=== PATIENT | female | born 1980 | race Caucasian/White ===

== ENCOUNTER 2023-11-05 18:02 | Emergency (ER) | payer OTHER, SELFPAY ==
[2023-11-05 18:04] VITALS: BP 127/59
[2023-11-05 18:28] LABS: Glucose - Point of Care 79 mg/dl (70-99)
[2023-11-05 18:41] LABS: % Basophils 0.5 % (0-2); % Eosinophils 0.7 % (0-6); % Immature Granulocytes 0.2 % (0-0.5); % Lymphocytes 34.8 % (20.5-51.1); % Monocytes 8.7 % (1.7-9.3); % Neutrophils 55.1 % (42.2-75.2); Absolute Monocytes 0.5 10^3/uL (0.1-0.6); Absolute Neutrophils 3.2 10^3/uL (1.4-6.5); Hematocrit 37.2 % (37.0-47.0); Hemoglobin 13.1 g/dL (12.0-16.0); Mean Corp Hgb Conc. 35.2 g/dL (33.0-37.0); Mean Corpuscular Hgb 31.5 pg (27.0-31.0); Mean Corpuscular Volume 89.4 fL (81.0-99.0); Mean Platelet Volume 11.6 fL (7.4-10.4); Nucleated Red Blood Cells % 0 %; Platelet Count 186 10^3/uL (130-400); Red Blood Cell Count 4.16 10^6/uL (4.20-5.40); Red Cell Dist. Width 11.9 % (11.5-14.5); Urine Albumin Negative (Neg - Trace); Urine Bilirubin Negative (Negative); Urine Character Clear (Clear); Urine Color Yellow; Urine Glucose Negative (Negative); Urine Ketone Negative (Negative); Urine Leukocyte Negative (Negative); Urine Nitrite Negative (Negative); Urine Occult Blood Negative (Negative); Urine Specific Gravity 1.015 (<1.030); Urine Urobilinogen Negative (Neg - 1+); Urine pH 6.5 (5.0-9.0); White Blood Cell Count 5.7 10^3/uL (4.8-10.8)
[2023-11-05 18:54] LABS: HCG, Serum Qualitative Screen Negative
[2023-11-05 18:59] LABS: AST (SGOT) 22 U/L (14-36); Albumin 4.5 g/dl (3.5-5.0); Alkaline Phosphatase 45 U/L (38-126); Blood Urea Nitrogen 22 mg/dl (7-17); Calcium 9.7 mg/dl (8.4-10.2); Carbon Dioxide 26 mmol/L (22-30); Chloride 105 mmol/L (98-107); Glucose 96 mg/dl (70-99); Potassium 4.4 mmol/L (3.5-5.1); Sodium 141 mmol/L (135-145); Total Bilirubin 0.7 mg/dl (0.2-1.3); eGFR > 60.00
[2023-11-05 19:00] LABS: ALT (SGPT) 21 U/L (0-35)
[2023-11-05 19:13] VITALS: BP 94/73
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
[2023-11-05 20:19] VITALS: BP 102/74
== END 2023-11-05 20:21 | disposition home or self-care (01) ==
LOC: EMR 18:02
PROVIDERS: EMERGENCY PHYSICIAN Emergency Medicine; FAMILY PHYSICIAN Family Medicine
DX: R55 Syncope and collapse (principal)
CPT/HCPCS: 99284; 70450; 80053; 81003; 82962; 84703; 85025; 93005

== ENCOUNTER → 2023-11-12 10:39 | Outpatient (REF) | payer OTHER, SELFPAY | LOC: RCS 10:39 | PROVIDERS: ATTENDING PHYSICIAN Family Medicine | DX: R55 Syncope and collapse (principal) | CPT/HCPCS: 93225; 93226 ==

== ENCOUNTER → 2023-11-15 10:45 | Outpatient (REF) | payer OTHER, SELFPAY ==
--- NOTE | 2023-11-15 13:15 | EEG.RPT ---
Electroencephalogram Report
Recording
Date of EE11/15/23
Type of EEG: Routine
Length of EEG recordin minutes
Done with Video Recording: Yes
Patient Status: Outpatient
Recording Conditions: Awake, Drowsy and Asleep
Hyperventilation Performed: Yes
Photic Stimulation Performed: Yes
Report
LESS THAN 1 HOUR EEG REPORT
EEG INTERPRETATION:
Unremarkable EEG for age
CLINICAL CORRELATION:
A normal EEG does not rule out a diagnosis of epilepsy. If clinical suspicion for seizure persists, a prolonged recording may be warranted.
Clinical correlation is advised.
METHODS:
A 21 channel digitized electroencephalogram (EEG) was performed in the [facility]. The 10/20 international system of electrode placement was used with ECG and lateral/vertical eye movements recorded. Persyst quantitative EEG
analysis was performed.
ELECTROENCEPHALOGRAPHER IMPRESSION(S):
Quality of study
Good
Background
Unremarkable, well maintained, medium amplitude alpha-frequency and unremarkable anterior-posterior voltage gradient
With eye opening the background activity changed to a low voltage mixture of frequencies.
Sleep
Drowsiness present
Stage 1 and stage 2 sleep recorded
Hyperventilation
Did activate the record symmetrically
Photic Stimulation
Did not activate the record
ECG
Normal sinus rhythm
== END ==
LOC: EEG 10:45
PROVIDERS: ATTENDING PHYSICIAN Family Medicine
DX: R55 Syncope and collapse (principal)
CPT/HCPCS: 95816

== ENCOUNTER 2023-11-16 15:16 | Emergency (ER) | payer OTHER, SELFPAY ==
[2023-11-16 15:20] VITALS: BP 112/76
[2023-11-16 15:47] LABS: % Basophils 0.3 % (0-2); % Eosinophils 0.3 % (0-6); % Immature Granulocytes 0.2 % (0-0.5); % Lymphocytes 24.1 % (20.5-51.1); % Monocytes 8.8 % (1.7-9.3); % Neutrophils 66.3 % (42.2-75.2); Absolute Lymphocytes 1.5 10^3/uL (1.2-3.4); Absolute Monocytes 0.5 10^3/uL (0.1-0.6); Hematocrit 38.2 % (37.0-47.0); Hemoglobin 13.2 g/dL (12.0-16.0); Mean Corp Hgb Conc. 34.6 g/dL (33.0-37.0); Mean Corpuscular Hgb 31.4 pg (27.0-31.0); Mean Corpuscular Volume 90.7 fL (81.0-99.0); Mean Platelet Volume 11.4 fL (7.4-10.4); Nucleated Red Blood Cells % 0 %; Platelet Count 205 10^3/uL (130-400); Red Blood Cell Count 4.21 10^6/uL (4.20-5.40); Red Cell Dist. Width 11.8 % (11.5-14.5)
[2023-11-16 16:05] LABS: HCG, Serum Qualitative Screen Negative
[2023-11-16 16:07] LABS: ALT (SGPT) 19 U/L (0-35); AST (SGOT) 20 U/L (14-36); Albumin 4.6 g/dl (3.5-5.0); Alkaline Phosphatase 31 U/L (38-126); Blood Urea Nitrogen 17 mg/dl (7-17); Calcium 9.5 mg/dl (8.4-10.2); Carbon Dioxide 27 mmol/L (22-30); Chloride 104 mmol/L (98-107); Glucose 98 mg/dl (70-99); Potassium 4.4 mmol/L (3.5-5.1); Sodium 139 mmol/L (135-145); Total Bilirubin 0.9 mg/dl (0.2-1.3); Total Protein 7.1 g/dl (6.3-8.2); eGFR > 60.00
--- NOTE | 2023-11-16 17:04 | ED.GENMED ---
History of Present Illness
General
Chief Complaint: Numbness
Time Seen by Provider: 11/16/23 17:04
History of Present Illness
History of Present Illness:
HPI: Patient had left-sided facial paresthesias onset today at 11 AM. She has also had a few weeks of intermittent numbness in both hands and feet. She was diagnosed with Lyme's disease in July after a tick bite but never had any rash. She tells
me that when she went to CT today, she had left lower extremity numbness for a few seconds the cause some difficulty walking but was self-limited.
EXAM:
GENERAL: Well appearing in no distress
HEENT: Moist oral mucosa
CARDIOVASCULAR: No murmurs, normal heart rate, regular rhythm, No chest wall tenderness
PULMONARY: No respiratory distress, breath sounds are clear and equal
ABDOMEN: Soft with no peritoneal signs, no tenderness
NEUROLOGIC: Excellent strength all extremities, no coordination deficits, as I touch both sides of the face she indicates that it is 'muted' however I would not characterize this as true sensory deficits
PSYCHIATRIC: Appropriate mental status, normal insight and judgement
EXTREMITIES: Nontender, no edema, moves all extremities equally
SKIN: No rash, no lesions
TIME OF INITIAL ENCOUNTER: 5:20 PM
NUMBER AND COMPLEXITY OF PROBLEMS ADDRESSED AT THE ENCOUNTER
� Chronic conditions affecting care: No significant past medical history but was diagnosed with Lyme disease 4 months ago
� Acute Exacerbation and/or Progression of Chronic Illness: This is an acute problem
� Differential Diagnosis includes: Nonspecific paresthesias, electrolyte abnormality, intracranial pathology
AMOUNT AND/OR COMPLEXITY OF DATA TO BE REVIEWED AND ANALYZED
� I performed an independent evaluation of and my interpretation is:
EKG:
CT: CT head unremarkable
X-rays:
Laboratory Studies: CBC and chemistries unremarkable, hCG negative
Other:
� Review of other/old records: EEG yesterday normal
� Clinical information was obtained by an independent historian:
� Prescriptions/Medications Considered but not given:
� Further testing considered but not performed: Consider EKG however the patient clearly has a regular rhythm and reports a recent normal Holter
RISK OF COMPLICATIONS AND/OR MORBIDITY OR MORTALITY OF PATIENT MANAGEMENT
� Social determinants of health affecting care: Lives at home
� Discussion with other providers: I notified and discussed case with Dr. Ben Kline
� Escalation of care including admission/observation vs risk of discharge considered: Unclear etiology of patient's symptoms. I discussed case with Dr. Ben Kline. Initially considered doxycycline but I did inform him that he
was already on doxycycline. He recommends outpatient MRI of the brain. She has no weakness on physical examination. NIHSS equals 0.
Past History
Past History
ED Past Medical History: None
ED Past Surgical History: Gynecological
Social History
Tobacco: Non-smoker
Alcohol: Occasional
Drug: None
Personal:
Living: with family
Phy Exam
Physical Exam
Physical Exam:
See HPI
Course
Orders/Labs/Results
Orders:
Orders
11/16/23 15:[address] [CT Head W/o Iv Contrast] Urgent
Comment:
Reason For Exam: left side face numnbess/tingling since 11am
11/16/23 15:32
Test Result ONCE
11/16/23 15:35
Complete Blood Count/With Diff Urgent
Comprehensive Metabolic Panel Urgent
HCG, Serum Qualitative Screen Urgent
Abnormal Lab Results
11/16/23
15:35
MCH 31.4 H pg
(27.0-31.0)
MPV 11.4 H fL
(7.4-10.4)
Alkaline Phosphatase 31 L U/L
(38-126)
11/16/23 15:35
11/16/23 15:35
Vital Signs
Initial and Last Documented VS:
Initial Vital Signs
Temp Pulse Resp BP Pulse Ox
97.8 F 78 18 112/76 100
11/16/23 15:20 11/16/23 15:20 11/16/23 15:20 11/16/23 15:20 11/16/23 15:20
Last Documented Vital Signs
Temp Pulse Resp BP Pulse Ox
97.8 F 69 16 97/63 100
11/16/23 15:20 11/16/23 17:35 11/16/23 17:35 11/16/23 17:35 11/16/23 17:35
*Critical Care Note
Total Time (30-74mins, 75-104mins- exclusive of procedures): Not Applicable
ED Attending Note
-
Portions of this chart may have been created with voice recognition software.� Occasional wrong word or��sound alike� substitutions may have occurred due to the inherent limitations of voice recognition software.
Discharge Plan
Departure
Referrals:
Abby Alvarado DO [Family Provider] -
Interventions
Interventions:
*Risk Screen - Suicide Last Done: 11/16/23 15:26
*General Assessment Last Done: 11/16/23 15:26
*Neglect/Abuse Screening Last Done: 11/16/23 15:26
ED- Neurological Assessment Last Done: 11/16/23 17:30
Discharge Date and Time
Print Language: [id number]
[2023-11-16 17:35] VITALS: BP 97/63
[2023-11-16 19:09] VITALS: BP 96/66
== END 2023-11-16 19:10 | disposition home or self-care (01) ==
LOC: EMR 15:16
PROVIDERS: Student in an Organized Health Care Education/Training Program; EMERGENCY PHYSICIAN Emergency Medicine; FAMILY PHYSICIAN Family Medicine
DX: R20.2 Paresthesia of skin (principal); R20.0 Anesthesia of skin
CPT/HCPCS: 99284; 70450; 80053; 84703; 85025

== ENCOUNTER → 2023-11-22 07:09 | Outpatient (REF) | payer OTHER, SELFPAY | LOC: HWRCS 07:09 | PROVIDERS: ATTENDING PHYSICIAN Family Medicine | DX: R55 Syncope and collapse (principal) | CPT/HCPCS: 93306 ==

== ENCOUNTER → 2023-12-05 07:37 | Outpatient (REF) | payer OTHER, SELFPAY | LOC: MRI 3T 07:37 | PROVIDERS: ATTENDING PHYSICIAN Family Medicine; REFERRING PHYSICIAN Psychiatry & Neurology Neurology | DX: R20.2 Paresthesia of skin (principal) | CPT/HCPCS: 70553; A9575 ==

== ENCOUNTER → 2024-05-02 08:55 | Outpatient (REF) | payer OTHER, SELFPAY | LOC: EMG 08:55 | PROVIDERS: ATTENDING PHYSICIAN Nurse Practitioner Adult Health; FAMILY PHYSICIAN Family Medicine | DX: R20.9 Unspecified disturbances of skin sensation (principal); R20.2 Paresthesia of skin | CPT/HCPCS: 95886; 95911 ==